=== PATIENT | male | born 1995 | race Caucasian/White ===

== ENCOUNTER 2018-07-15 16:55 | Emergency (ER) | payer SELFPAY ==
[~2018-07-15] VITALS: Ht 175.3 cm; Wt 63.6 kg
[~2018-07-15 16:55] MED LIST: AMOXICILLIN/CLA1 TA1 PO; LORTAB 5/500 501 TAB PO; MOTRIN 400400 MG/TAB PO; STRATTERA 40MG40 MG PO; TYLENOL W/COD1 UDTAB PO; ZOFRAN 4MG T4 MG/TAB PO
[2018-07-15 17:08] VITALS: BP 146/77; TEMP 98.4
[2018-07-15 18:25] LABS: COLLECTION METHOD CLEAN CATCH
[2018-07-15 18:48] LABS: AMORPHOUS CRYSTAL Present /uL; BUDDING YEAST Present /hpf; MUCOUS Present /lpf; PH 7 (5-8); SQUAMOUS EPITHELIAL None Seen /hpf; URINE APPEARANCE Cloudy; URINE BACTERIA None Seen /hpf; URINE BILIRUBIN Negative (NEGATIVE); URINE BLOOD Negative (NEGATIVE); URINE COLOR Yellow; URINE GLUCOSE Negative (NEGATIVE); URINE KETONE Negative (NEGATIVE); URINE LEUKOCYTE ESTERASE Negative (NEGATIVE); URINE NITRATE Negative (NEGATIVE); URINE PROTEIN(semi-quant) Negative (NEGATIVE); URINE RBC 0-2 /hpf; URINE UROBILINOGEN >=4.0 mg/dL (NEGATIVE)
[2018-07-15 19:18] LABS: BASO % 0.3 % (0.0-2.0); EOS # 0.1 (0.0-0.7); EOS % 0.9 % (0-4.0); GRAN # 6.1 (1.4-6.5); GRAN % 58.3 % (42.2-75.2); HEMATOCRIT 42.7 % (42.0-52.0); HEMOGLOBIN 14.1 g/dl (13.5-18.0); LYMPH # 3.3 (1.2-3.4); LYMPH % 31.4 % (20.0-51.0); MEAN CELL VOLUME 85 fl (80.0-100.0); MEAN CORPUSCULAR HEMOGLOBIN 28 pg (27.0-31.0); MEAN CORPUSCULAR HGB CONC 33 g/dl (33.0-37.0); MEAN PLATELET VOLUME 9.2 fl (7.4-10.4); MONO # 0.9 (0.1-0.6); MONO % 8.8 % (1.7-9.3); PLATELET COUNT 300 K/mm3 (130-400); RED BLOOD COUNT 5.02 M/mm3 (4.20-5.60); REDCELL DISTRIBUTION WIDTH-CV 12.7 % (11.5-14.5)
[2018-07-15 19:30] LABS: ALANINE AMINOTRANSFERASE 27 U/L (21-72); ALBUMIN 4.7 gm/dL (3.5-5.0); ALKALINE PHOSPHATASE 69 U/L (50-136); AST,SGOT 24 U/L (15-37); BILIRUBIN,TOTAL 1.2 mg/dL (0.0-1.0); BLOOD UREA NITROGEN 12 mg/dL (9-20); CALCIUM 9.8 mg/dL (8.4-10.2); CARBON DIOXIDE 29 mmol/L (22-30); CREATININE, serum 0.82 mg/dL (0.66-1.25); GLUCOSE 89 mg/dL (74-106); POTASSIUM 4.7 mmol/L (3.4-5.0); SODIUM 141 mmol/L (137-145); TOTAL PROTEIN 8.5 gm/dL (6.4-8.2)
[2018-07-15 19:31] LABS: ACETAMINOPHEN < 10 ug/mL (10-30); ALCOHOL(ethanol),MEDICAL < 10 mg/dL; CHLORIDE 105 mmol/L (98-107); SALICYLATE < 1.0 mg/dL
[2018-07-15 19:34] LABS: ANION GAP 7 mmol/L (7-16)
[2018-07-15 19:39] LABS: TRICYCLIC ANTIDEPRESS URINE NEGATIVE
[2018-07-15] MEDS ORDERED: DOXYCYCLINE 10100 MG PO (22:23)
[2018-07-15 23:15] VITALS: PULSE 80
== END 2018-07-15 23:15 | disposition home or self-care (01) ==
LOC: COL.ER 16:55
PROVIDERS: Family Medicine
DX: N34.2 Other urethritis (principal); F32.9 Major depressive disorder, single episode, unspecified

== ENCOUNTER 2018-10-17 19:04 | Emergency (ER) | payer SELFPAY ==
[~2018-10-17] VITALS: Ht 175.3 cm; Wt 63.6 kg
[~2018-10-17 19:04] MED LIST changes: +DOXYCYCLINE 10100 MG PO
[2018-10-17 19:24] VITALS: BP 125/62; TEMP 98.9
[2018-10-17 20:56] VITALS: PULSE 69
== END 2018-10-17 20:56 | disposition home or self-care (01) ==
LOC: COL.ER 19:04
DX: S61.214A Laceration without foreign body of right ring finger without damage to nail, initial encounter (principal); Z23 Encounter for immunization; W26.8XXA Contact with other sharp object(s), not elsewhere classified, initial encounter; Y92.59 Other trade areas as the place of occurrence of the external cause

== ENCOUNTER 2018-10-27 14:19 | Emergency (ER) | payer SELFPAY ==
[2018-10-27 14:30] VITALS: BP 126/63; PULSE 72; TEMP 98.1
== END 2018-10-27 14:35 | disposition home or self-care (01) ==
LOC: COL.ER 14:19
DX: S61.224D Laceration with foreign body of right ring finger without damage to nail, subsequent encounter (principal); X58.XXXD Exposure to other specified factors, subsequent encounter

== ENCOUNTER 2021-01-19 07:06 | Emergency (ER) | payer SELFPAY ==
[~2021-01-19] VITALS: Ht 175.3 cm; Wt 59.1 kg
[2021-01-19 07:12] VITALS: TEMP 98.1
[2021-01-19 07:50] VITALS: BP 119/72; PULSE 65
== END 2021-01-19 07:50 | disposition home or self-care (01) ==
LOC: COL.ER 07:06
DX: R09.81 Nasal congestion (principal); J45.909 Unspecified asthma, uncomplicated; F17.210 Nicotine dependence, cigarettes, uncomplicated; Z20.822 Contact with and (suspected) exposure to COVID-19

== ENCOUNTER 2023-12-20 13:54 | Emergency (ER) | payer SELFPAY ==
[~2023-12-20] VITALS: Ht 175.3 cm; Wt 77.3 kg
[~2023-12-20 13:54] MED LIST changes: +FLEXERIL 1010 MG/TAB PO
[2023-12-20 14:30] VITALS: TEMP 99
[2023-12-20 16:54] VITALS: BP 131/94; PULSE 60
== END 2023-12-20 16:54 | disposition home or self-care (01) ==
LOC: COL.ER 13:54
DX: J06.9 Acute upper respiratory infection, unspecified (principal)